=== PATIENT | male | born 1950 | race Native Hawaiian/Other Pacific Islander ===

== ENCOUNTER 2018-12-29 08:58 | Outpatient (CLI) | payer SELFPAY | END 2018-12-29 08:59 | disposition home or self-care (01) | LOC: C.LAB 08:58 | DX: I10 Essential (primary) hypertension (principal); E11.9 Type 2 diabetes mellitus without complications; M85.80 Other specified disorders of bone density and structure, unspecified site ==

== ENCOUNTER 2019-01-12 10:19 | Outpatient (CLI) | payer SELFPAY | END 2019-01-12 10:20 | disposition home or self-care (01) | LOC: C.DEXAIC 10:19 ==